=== PATIENT | female | born 1985 | race Caucasian/White ===

== ENCOUNTER 2022-06-11 12:33 | Emergency (ER) | payer BC ==
--- OUTSIDE RECORDS SUMMARY | 2022-06-11 12:59 | XMS REPORT | Continuity of Care Document ---
:1985 Author Organization [facility] t Address [address] [place] [id number] Care Team Providers Name Role Phone JAIME Attending Clinician Unavailable JAIME Admitting Clinician Unavailable Problems This patient has no known problems. Allergies, Adverse Reactions, Alerts This patient has no known allergies or adverse reactions. Medications This patient has no known medications. Procedures This patient has no known procedures. Encounters Start End Encounter Admission Attending Care Care Encounter Source Date/Time Date/Time Type Type Clinicians Facility Department ID 2021-10-30 2021-10-30 Outpatient O[address] VILLASE[facility]OR [facility] [facility] 00:00:00 00:00:00 _SHAKEEL [id number] [facility] Program Results This patient has no known results.
[2022-06-11] MEDS ORDERED: NA CHLORIDE 0.9% 1,000 ML ONE (13:37)
[2022-06-11] MEDS ORDERED: PROMETHAZINE INJ 25 MG/ML AMP ONE (13:37)
[2022-06-11] MEDS ORDERED: FAMOTIDINE 20 MG/2 ML VIAL IV ONE (13:37)
[2022-06-11 13:58] LABS: Hematocrit 39.9 % (36.0-45.0); Lymphocytes % 20.3 % (15.3-44.8); MCV 82.9 fL (80-100); RBC Red Blood Cell Count 4.81 M/uL (3.86-4.86)
[2022-06-11 14:11] LABS: Albumin 4.2 g/dL (3.4-5.0); Bilirubin Total 0.6 mg/dL (0.2-1.0); Potassium 3.1 mmol/L (3.5-5.1); Protein, Total 8.6 g/dL (6.4-8.2)
[2022-06-11] MEDS ORDERED: NS KCL 20MEQ 1,000 ML IV ONE (14:35)
[2022-06-11 14:39] LABS: Magnesium 2.2 mg/dL (1.6-2.4); Phosphorus 3.7 mg/dL (2.5-4.9)
[2022-06-11 14:41] LABS: SARS-COV-2 RT PCR NEGATIVE (NEGATIVE)
[2022-06-11 15:16] LABS: Urine Blood 2+ (Negative); Urine Glucose Negative (Negative); Urine Protein Negative (Negative); Urine Specific Gravity <=1.005 (1.005-1.030)
[2022-06-11 15:25] LABS: Urine Bacteria <20 /HPF (<20); Urine Mucus Slight /HPF (None Seen); Urine RBC <5 /HPF (None Seen)
[2022-06-11] MEDS ORDERED: LIDOCAINE VISCOUS 2% SOLN 15 ML UDC ONE (15:43)
[2022-06-11] MEDS ORDERED: MAGNES/ALUMIN/SIMET 30ML UCUP ONE (15:43)
[2022-06-11] MEDS ORDERED: POTASSIUM CL SA 10 MEQ TAB PO ONE (15:43)
--- NOTE | 2022-06-27 15:10 | ER ---
Nurse's Notes [facility] Name: Lakshmi Matta Age: 36 yrs Sex: Female : 1985 Arrival Date: 06/11/2022 Time: 12:36 Bed 11 Private MD: Ivone Giron Diagnosis: Viral infection, unspecified;Hypokalemia Presentation: 06/11 12:55 Chief complaint: Patient states: she has been having a dry cough, nausea, body aches, ap3 "kidney pain", headache, chills, sweats since Thursday06/07/2022. Patient states she has not been sleeping well due to the cough, and has been sleeping in a recliner. patient saw her PCP on Thursday, but reports she has not improved since seeing them. Patient states that she hasn't been able to hold down much food or water since feeling ill. Coronavirus screen: Client presents with at least one sign or symptom that may indicate coronavirus-19. Ebola Screen: No symptoms or risks identified at this time. Initial Sepsis Screen: Does the patient meet any 2 criteria? No. Patient's initial sepsis screen is negative. Does the patient have a suspected source of infection? No. Patient's initial sepsis screen is negative. Risk Assessment: Do you want to hurt yourself or someone else? Patient reports no desire to harm self or others. Onset of symptoms was June 07, 2022. 12:55 Method Of Arrival: Ambulatory ap3 12:55 Acuity: ALMA 3 ap3 Triage Assessment: 13:01 General: Appears uncomfortable, Behavior is calm, cooperative. Pain: Complains of pain ap3 in generalized body aches Pain began gradually. Neuro: Level of Consciousness is awake, alert, obeys commands, Oriented to person, place, time, situation. Cardiovascular: Patient's skin is warm and dry. Respiratory: Reports cough that is Airway is patent Respiratory effort is even, unlabored, Respiratory pattern is regular, symmetrical, Onset: The symptoms/episode began/occurred gradually, the patient has mild shortness of breath. 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 Flu vaccine is not up to date. - Social history:: Smoking status: Patient denies any tobacco usage or history of. Screenin:02 [facility] ED Fall Risk Assessment (Adult) History of falling in the last 3 months, ap3 including since admission No falls in past 3 months (0 pts). Abuse screen: Denies threats or abuse. Nutritional screening: No deficits noted. Tuberculosis screening: No symptoms or risk factors identified. Assessment: 13:53 General: Appears in no apparent distress. ill, Behavior is calm, cooperative. Pain: hb Pain currently is 3 out of 10 on a pain scale. Neuro: Level of Consciousness is awake, alert, obeys commands, Oriented to person, place, time, situation. Cardiovascular: Patient's skin is warm and dry. Respiratory: Respiratory effort is even, unlabored, Respiratory pattern is regular, symmetrical. GI: Reports nausea, vomiting. : No signs and/or symptoms were reported regarding the genitourinary system. EENT: No signs and/or symptoms were reported regarding the EENT system. Derm: Skin is pink, warm \\T\\ dry. Musculoskeletal: Reports body aches. 14:36 Reassessment: Patient appears in no apparent distress at this time. Patient and/or hb family updated on plan of care and expected duration. Pain level reassessed. Patient is alert, oriented x 3, equal unlabored respirations, skin warm/dry/pink. 15:00 Reassessment: Patient appears in no apparent distress at this time. Patient and/or eh3 family updated on plan of care and expected duration. Pain level reassessed. Patient is alert, oriented x 3, equal unlabored respirations, skin warm/dry/pink. Pt status is discharged, pt to stay in ED until completion of KCl infusion per provider, 750mL remainins to be infused. 16:00 Reassessment: Patient appears in no apparent distress at this time. Patient and/or eh3 family updated on plan of care and expected duration. Pain level reassessed. Patient is alert, oriented x 3, equal unlabored respirations, skin warm/dry/pink. 450mL KCl remains to be infused. 17:00 Reassessment: Patient appears in no apparent distress at this time. Patient and/or eh3 family updated on plan of care and expected duration. Pain level reassessed. Patient is alert, oriented x 3, equal unlabored respirations, skin warm/dry/pink. 100 mL KCl remains to be infused. Vital Signs: 12:55 BP 135 / 88; Pulse 102; Resp 18; Temp 98.2; Pulse Ox 96% ; Weight 76.66 kg; ap3 14:41 BP 108 / 68; Pulse 88; Resp 17; Pulse Ox 98% on R/A; hb 15:00 BP 116 / 57; Pulse 95; Resp 18; Pulse Ox 100% on R/A; eh3 16:00 BP 109 / 58; Pulse 104; Resp 18; Pulse Ox 99% on R/A; eh3 17:00 BP 111 / 57; Pulse 98; Resp 18; Pulse Ox 100% on R/A; eh3 ED Course: 12:36 Patient arrived in ED. mr 12:36 Ivone Giron is Private Physician. mr 12:43 [facility] Ingram [facility]C [facility]. snw 12:43 Artur Torres DO is Attending Physician. snw 12:58 Triage completed. ap3 13:02 Arm band placed on left wrist. ap3 13:51 Inserted saline lock: 20 gauge in left antecubital area, using aseptic technique. Blood hb collected. 13:53 Barbara Fischer, RN is Primary Nurse. hb 13:54 Allergy band placed. hb 17:37 No provider procedures requiring assistance completed. IV discontinued, intact, eh3 bleeding controlled, No redness/swelling at site. Pressure dressing applied. Administered Medications: 13:55 Drug: NS 0.9% IV 1000 ml Route: IV; Rate: 1 bolus; Site: left antecubital; hb 15:00 Follow up: IV Status: Completed infusion; IV Intake: 1000ml eh3 13:55 Drug: Famotidine IVP 20 mg Route: IVP; Site: left antecubital; hb 15:00 Follow up: Response: No adverse reaction eh3 13:55 Drug: Promethazine IVP 12.5 mg Route: IVP; Site: left antecubital; hb 14:30 Follow up: Response: No adverse reaction hb 14:35 Drug: NS 0.9% with KCl IV 20 mEq/L 1000 ml Route: IV; Rate: bolus; Site: left hb antecubital; 17:32 Follow up: Response: No adverse reaction; IV Status: Completed infusion; IV Intake: eh3 1000ml 15:42 Drug: Potassium Chloride PO 20 mEq Route: PO; eh3 16:00 Follow up: Response: No adverse reaction eh3 15:42 Drug: GI Cocktail without - (Maalox PO Suspension 30 ml, Lidocaine Mucous eh3 Membrane Liquid 2 % 15 ml) Route: PO; 16:00 Follow up: Response: Pain is decreased eh3 17:33 Not Given (Physician Discretion): NS 0.9% IV 250 ml IV at bolus once eh3 Medication: 13:54 VIS not applicable for this client. hb Intake: 15:00 IV: 1000ml; Total: 1000ml. eh3 17:32 IV: 1000ml; Total: 2000ml. eh3 Outcome: 14:54 Discharge ordered by . snmarylu 17:37 Discharged to home ambulatory, with significant other. eh3 17:37 Condition: stable 17:37 Discharge instructions given to patient, significant other, Instructed on discharge instructions, follow up and referral plans. medication usage, Demonstrated understanding of instructions, follow-up care, medications, Prescriptions given X 1. 17:54 Patient left the ED. eh3 Signatures: Codi Ingram, LEATHER LACER-C LEATHER LACER-Csnw SolerFernanda linterBarbara RN RN Brunilda Guan RN RN 3 Ruth Garcia RN RN 3
--- NOTE | 2022-06-27 15:10 | EDPHYS ---
Physician Documentation [facility] Name: Lakshmi Matta Age: 36 yrs Sex: Female : 1985 Arrival Date: 06/11/2022 Time: 12:36 Bed 11 Private MD: Ivone Giron ED Physician Artur Torres HPI: 06/11 14:29 This 36 yrs old Female presents to ER via Ambulatory with complaints of Flu Symptoms, snw Breathing Difficulty. 14:29 upper respiratory s/s and then significant vomiting. Unable to hold anything down since snw the weekend. . Severity of symptoms: At their worst the symptoms were moderate severe in the emergency department the symptoms are unchanged. It is unknown whether or not the patient has had similar symptoms in the past. The patient has not recently seen a physician. 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 Flu vaccine is not up to date. - Social history:: Smoking status: Patient denies any tobacco usage or history of. ROS: 13:29 Constitutional: malaise, fatigue, vomiting since Thursday Eyes: Negative for injury, snw pain, redness, and discharge. Exam: 13:16 Head/Face: Normocephalic, atraumatic. Eyes: Pupils equal round and reactive to light, snw extra-ocular motions intact. Lids and lashes normal. Conjunctiva and sclera are non-icteric and not injected. Cornea within normal limits. Periorbital areas with no swelling, redness, or edema. ENT: Nares patent. No nasal discharge, no septal abnormalities noted. Tympanic membranes are normal and external auditory canals are clear. Oropharynx with no redness, swelling, or masses, exudates, or evidence of obstruction, uvula midline. Mucous membranes moist. Neck: Trachea midline, no thyromegaly or masses palpated, and no cervical lymphadenopathy. Supple, full range of motion without nuchal rigidity, or vertebral point tenderness. No Meningismus. Chest/axilla: Normal chest wall appearance and motion. Nontender with no deformity. No lesions are appreciated. 13:16 Respiratory: Lungs have equal breath sounds bilaterally, clear to auscultation and percussion. No rales, rhonchi or wheezes noted. No increased work of breathing, no retractions or nasal flaring. 13:16 Back: No spinal tenderness. No costovertebral tenderness. Full range of motion. Skin: Warm, dry with normal turgor. Normal color with no rashes, no lesions, and no evidence of cellulitis. MS/ Extremity: Pulses equal, no cyanosis. Neurovascular intact. Full, normal range of motion. Neuro: Awake and alert, GCS 15, oriented to person, place, time, and situation. Cranial nerves II-XII grossly intact. Motor strength 5/5 in all extremities. Sensory grossly intact. Cerebellar exam normal. Normal gait. Psych: Awake, alert, with orientation to person, place and time. Behavior, mood, and affect are within normal limits. 13:16 Constitutional: The patient appears alert, anxious, listless, uncomfortable. 13:16 Cardiovascular: Rate: tachycardic, Heart sounds: normal. 13:16 Abdomen/GI: Inspection: abdomen appears normal, Bowel sounds: diminished, in all quadrants. Vital Signs: 12:55 BP 135 / 88; Pulse 102; Resp 18; Temp 98.2; Pulse Ox 96% ; Weight 76.66 kg; ap3 14:41 BP 108 / 68; Pulse 88; Resp 17; Pulse Ox 98% on R/A; hb 15:00 BP 116 / 57; Pulse 95; Resp 18; Pulse Ox 100% on R/A; eh3 16:00 BP 109 / 58; Pulse 104; Resp 18; Pulse Ox 99% on R/A; eh3 17:00 BP 111 / 57; Pulse 98; Resp 18; Pulse Ox 100% on R/A; eh3 MDM: 12:52 Patient medically screened. snw 14:28 Differential diagnosis: viral Infection, bacterial infection, gastroenteritis. Data snw reviewed: vital signs, nurses notes. I considered the following discharge prescriptions or medication management in the emergency department Medications were administered in the Emergency Department. See MAR. Counseling: I had a detailed discussion with the patient and/or guardian regarding: the historical points, exam findings, and any diagnostic results supporting the discharge/admit diagnosis, lab results, the need for outpatient follow up, to return to the emergency department if symptoms worsen or persist or if there are any questions or concerns that arise at home. ED course: Pt is feeling better, sleeping. Hypokalemia at 3.1, Mag and phosphorus levels added to labs eval. NS with 20meq KCL ordered. 06/11 13:11 Order name: COVID-19/FLU A+B; Complete Time: 14:53 snw 06/11 13:11 Order name: Strep; Complete Time: 14:27 snw 06/11 13:11 Order name: CBC with Diff; Complete Time: 14:00 snw 06/11 13:11 Order name: CMP; Complete Time: 14:12 snw 06/11 13:11 Order name: Lipase; Complete Time: 14:12 snw 06/11 13:11 Order name: Urine Microscopic Only; Complete Time: 15:30 snw 06/11 14:13 Order name: Add On-Lab snw 06/11 14:28 Order name: Phosphorus; Complete Time: 14:40 EDMS 06/11 14:28 Order name: Magnesium; Complete Time: 14:40 EDMS 06/11 14:30 Order name: Throat Culture EDMS 06/11 15:16 Order name: Urine Dipstick-Ancillary; Complete Time: 15:30 EDMS 06/11 13:11 Order name: IV Saline Lock; Complete Time: 13:55 snw 06/11 13:11 Order name: Labs collected and sent; Complete Time: 13:55 snw 06/11 13:11 Order name: Urine Dipstick-Ancillary (obtain specimen); Complete Time: 15:17 snw 06/11 13:11 Order name: Urine Test (obtain specimen); Complete Time: 15:17 snw Administered Medications: 13:55 Drug: NS 0.9% IV 1000 ml Route: IV; Rate: 1 bolus; Site: left antecubital; hb 15:00 Follow up: IV Status: Completed infusion; IV Intake: 1000ml eh3 13:55 Drug: Famotidine IVP 20 mg Route: IVP; Site: left antecubital; hb 15:00 Follow up: Response: No adverse reaction eh3 13:55 Drug: Promethazine IVP 12.5 mg Route: IVP; Site: left antecubital; hb 14:30 Follow up: Response: No adverse reaction hb 14:35 Drug: NS 0.9% with KCl IV 20 mEq/L 1000 ml Route: IV; Rate: bolus; Site: left hb antecubital; 17:32 Follow up: Response: No adverse reaction; IV Status: Completed infusion; IV Intake: eh3 1000ml 15:42 Drug: Potassium Chloride PO 20 mEq Route: PO; eh3 16:00 Follow up: Response: No adverse reaction eh3 15:42 Drug: GI Cocktail without - (Maalox PO Suspension 30 ml, Lidocaine Mucous eh3 Membrane Liquid 2 % 15 ml) Route: PO; 16:00 Follow up: Response: Pain is decreased eh3 17:33 Not Given (Physician Discretion): NS 0.9% IV 250 ml IV at bolus once eh3 Disposition: 13:29 Co-signature as Attending Physician, Artur ANDERSON was immediately available on-site ms3 in the Emergency Department for consultation in the care of the patient. Disposition Summary: 06/11/22 14:54 Discharge Ordered Location: Home snw Condition: Stable snw Diagnosis - Viral infection, unspecified snw - Hypokalemia snw Followup: snw - With: Emergency Department - When: As needed - Reason: Worsening of condition Followup: snw - With: Private Physician - When: 1 week - Reason: Recheck today's complaints, Continuance of care, Re-evaluation by your physician Discharge Instructions: - Discharge Summary Sheet snw - Dehydration, Adult snw - Potassium Content of Foods snw - Hypokalemia snw - Rehydration, Adult snw - Viral Illness, Adult snw Forms: - Medication Reconciliation Form snw - Thank You Letter snw - Antibiotic Education snw - Prescription Opioid Use snw Prescriptions: - promethazine 25 mg Oral Tablet - take 1 tablet by ORAL route every 6 hours As needed; 20 tablet; Refills: 0, snw Product Selection Permitted Signatures: Dispatcher [employer] EDCodi Castillo FNP-C CLINIC CLERK-Csnw Barbara Fischer, RN RN Brunilda Guan RN RN ap3 Artur Torres DO DO ms3 Ruth Garcia, RN RN eh3
== END 2022-06-11 17:54 | disposition home or self-care (01) ==
LOC: ER 12:33
DX: B34.9 Viral infection, unspecified (principal); E87.6 Hypokalemia; Z20.822 Contact with and (suspected) exposure to COVID-19; Z88.4 Allergy status to anesthetic agent
CPT/HCPCS: 96361; 87070; 85025; 36415; 83735; 84100; 87081; 83690; 80053; 0240U; 96375; 96374; 99284; J2550; J7030; J3480; 81003; 81015